=== PATIENT | male | born 1965 | race Caucasian/White ===

== ENCOUNTER 2018-05-27 00:22 | Emergency (ER) | payer MEDICAID, OTHER ==
[~2018-05-27] VITALS: Ht 180.3 cm; Wt 86.2 kg
[~2018-05-27 00:22] MED LIST: METF-442 PO; TAMS-3 PO; [UNRECOGNIZED DRUG - CODE] PO
--- NOTE | 2018-05-27 00:38 | NUR ---
Patient is AAOx4. Speaking in complete sentences, speech is clear. No neurologic deficits noted. Patient comes in with c/o SOB x 2 days. No cough/congestion/adventitious sounds. Current smoker. Flu Shot last March. Respirations even and unlabored. No cardiovascular distress noted. NSR on manager monitoring. No GI/ distress. Patient in bed, bed in lowest position. Siderails up x2. Call light is within reach. Fall precautions in place per protocol.
[2018-05-27] MEDS ORDERED: ALBUTEROL SULFATE 2.5 MG/3 ML NEBU ONE (00:58)
[2018-05-27] MEDS ORDERED: ALBUTEROL SULFATE 2.5 MG/3 ML NEBU NEB ONE (01:00)
[2018-05-27] MEDS ORDERED: AZITHROMYCIN IV 500 MG in IV DEXTROSE 5% 250 ML IV ONE (01:00)
[2018-05-27] MEDS ORDERED: AZITHROMYCIN 500 MG VIAL IV ONE (01:17)
[2018-05-27 01:40] LABS: BASOPHILS # (AUTO) 0.1 K/uL (0.0-8.0); BASOPHILS % (AUTO) 1.2 % (0.0-2.0); EOSINOPHILS # (AUTO) 0.4 K/uL (0.0-0.7); HEMATOCRIT 40.8 % (36.7-47.1); HEMOGLOBIN 14.3 g/dL (12.5-16.3); LYMPHOCYTES # (AUTO) 1.7 K/uL (20.0-40.0); LYMPHOCYTES % (AUTO) 37.3 % (20.5-51.5); MEAN CORPUSCULAR HEMOGLOBIN 31.3 uug (23.8-33.4); MEAN CORPUSCULAR HGB CONC 35 g/dL (32.5-36.3); MEAN CORPUSCULAR VOLUME 89.6 fL (73.0-96.2); MONOCYTES # (AUTO) 0.4 K/uL (2.0-10.0); MONOCYTES % (AUTO) 7.9 % (0.0-11.0); NEUTROPHILS # (AUTO) 2.1 K/uL (1.8-8.9); NEUTROPHILS % (AUTO) 45.6 % (38.5-71.5); PLATELET COUNT (AUTO) 146 K/uL (152-348); RED BLOOD CELL COUNT(AUTO) 4.55 MIL/uL (4.06-5.63); WHITE BLOOD COUNT (AUTO) 4.7 K/uL (3.6-10.2)
[2018-05-27 01:43] LABS: CREATININE 0.9 mg/dL (0.6-1.3); POTASSIUM 3.8 mmol/L (3.5-5.1)
--- NOTE | 2018-05-27 01:43 | NUR ---
Patient in bed, no acute distress noted.
[2018-05-27 01:56] LABS: BILIRUBIN,DIRECT 0.1 mg/dL (0.0-0.2); BILIRUBIN,TOTAL 0.6 mg/dL (0.2-1.0); TOTAL PROTEIN, SERUM 7.8 g/dL (6.4-8.2)
--- NOTE | 2018-05-27 03:11 | NUR ---
Patient discharged to home in stable conditon. Written and verbal after care instructions given. Patient verbalizes understanding of instructions. Ambulated from ER with stable gait. All belongings with patient.
[2018-05-27 03:12] VITALS: BP 111/78
== END 2018-05-27 03:16 | disposition home or self-care (01) ==
LOC: ER 00:24
DX: J40 Bronchitis, not specified as acute or chronic (principal); A31.0 Pulmonary mycobacterial infection; I50.9 Heart failure, unspecified; F17.200 Nicotine dependence, unspecified, uncomplicated; E11.9 Type 2 diabetes mellitus without complications; Z79.899 Other long term (current) drug therapy; Z59.0 Homelessness
CPT/HCPCS: 36415; 71045; 80048; 80076; 83880; 84484; 85025; 85730; 87040 ×2; 93005; 94640; 96365; 96366; 99284; J0456; 70030-TC; A4663; J7050

== ENCOUNTER 2018-06-08 05:09 | Emergency (ER) | payer OTHER ==
[~2018-06-08] VITALS: Ht 180.3 cm; Wt 77.1 kg
--- NOTE | 2018-06-08 05:26 | NUR ---
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 Respirations even + unlabored. No sob/chest pain. No acute distress noted.
[2018-06-08] MEDS ORDERED: ALBUTEROL SULFATE 2.5 MG/3 ML NEBU NEB ONE (05:45)
[2018-06-08] MEDS ORDERED: IPRATROPIUM BROMIDE 0.5 MG/2.5 ML NEBU NEB ONE (05:45)
[2018-06-08] MEDS ORDERED: ALBUTEROL SULFATE 2.5 MG/3 ML NEBU ONE (05:50)
[2018-06-08] MEDS ORDERED: IPRATROPIUM BROMIDE 0.5 MG/2.5 ML NEBU ONE (05:50)
--- NOTE | 2018-06-08 06:18 | NUR ---
Pt states he feels much better after breathing tx.
--- NOTE | 2018-06-08 06:21 | NUR ---
Patient given written and verbal discharge instructions. Patient verbalizes understanding of instructions. Patient is ambulatory with steady gait. Refuses offer of intermediate placement. Patient given list of available shelters in surrounding area. Provided pt food. Pt states he will return to his car.
== END 2018-06-08 06:24 | disposition home or self-care (01) ==
LOC: ER 05:10
DX: A31.0 Pulmonary mycobacterial infection (principal); J40 Bronchitis, not specified as acute or chronic; R07.81 Pleurodynia; I50.9 Heart failure, unspecified; E11.9 Type 2 diabetes mellitus without complications; F17.200 Nicotine dependence, unspecified, uncomplicated; Z59.0 Homelessness; Z79.899 Other long term (current) drug therapy
CPT/HCPCS: 93005; A4663; J3590

== ENCOUNTER 2018-06-21 20:52 | Emergency (ER) | payer OTHER ==
[~2018-06-21] VITALS: Ht 172.7 cm; Wt 81.6 kg
--- NOTE | 2018-06-21 22:56 | NUR ---
Pt ambulates to ER with c/o cough x 2 days. Respirations even + unlabored. SAO2 97% room air.
--- NOTE | 2018-06-21 23:01 | NUR ---
Dr. Carina SCOTT MD at bedside to evaluate pt.
[2018-06-21] MEDS ORDERED: ALBUTEROL SULFATE 2.5 MG/3 ML NEBU ONE (23:11)
[2018-06-21] MEDS ORDERED: IPRATROPIUM BROMIDE 0.5 MG/2.5 ML NEBU ONE (23:11)
[2018-06-21] MEDS ORDERED: ALBUTEROL SULFATE 2.5 MG/3 ML NEBU NEB ONE (23:15)
[2018-06-21] MEDS ORDERED: IPRATROPIUM BROMIDE 0.5 MG/2.5 ML NEBU NEB ONE (23:15)
--- NOTE | 2018-06-21 23:56 | NUR ---
Patient given written and verbal discharge instructions. Patient verbalizes understanding of instructions. Patient is ambulatory with steady gait. Refuses offer of intermediate placement. Patient given list of available shelters in surrounding area. Pt provided sandwich.
== END 2018-06-21 23:59 | disposition home or self-care (01) ==
LOC: ER 20:52
DX: J20.9 Acute bronchitis, unspecified (principal); A31.0 Pulmonary mycobacterial infection; I50.9 Heart failure, unspecified; F17.200 Nicotine dependence, unspecified, uncomplicated; E11.9 Type 2 diabetes mellitus without complications; Z59.0 Homelessness; Z79.899 Other long term (current) drug therapy
CPT/HCPCS: A4663; J3590

== ENCOUNTER 2018-06-26 02:50 | Emergency (ER) | payer OTHER ==
[~2018-06-26] VITALS: Ht 180.3 cm; Wt 99.8 kg
--- NOTE | 2018-06-26 03:39 | NUR ---
Dr. Dutton at bedside for MSE.
[2018-06-26] MEDS ORDERED: IBUPROFEN 600 MG TABLET PO ONE (03:45)
[2018-06-26] MEDS ORDERED: IBUPROFEN 600 MG TABLET ONE (03:51)
--- NOTE | 2018-06-26 04:05 | NUR ---
MSE COMPLETED, PT RECEIVED MOTRIN, PT THEN D/C'D HOME, PT OFFERED HOMELESS PACKET , PT REFUSED PAKET. PT AMBULATED W/O DIFF/TOOK ALL BELONGINGS. PT SIGNED [facility] [employer] REFUSAL FORM.
[2018-06-26 04:07] VITALS: BP 132/81
== END 2018-06-26 04:08 | disposition home or self-care (01) ==
LOC: ER 02:50
DX: K80.20 Calculus of gallbladder without cholecystitis without obstruction (principal); I50.9 Heart failure, unspecified; E11.9 Type 2 diabetes mellitus without complications; F17.200 Nicotine dependence, unspecified, uncomplicated; Z59.0 Homelessness; Z79.899 Other long term (current) drug therapy
CPT/HCPCS: A4663

== ENCOUNTER 2018-07-02 18:01 | Emergency (ER) | payer OTHER ==
[~2018-07-02] VITALS: Ht 180.3 cm; Wt 99.8 kg
--- NOTE | 2018-07-02 19:00 | NUR ---
Dr. Alejo at bedside for MSE.
[2018-07-02 19:26] LABS: BASOPHILS % (AUTO) 0.9 % (0.0-2.0); EOSINOPHILS # (AUTO) 0.3 K/uL (0.0-0.7); EOSINOPHILS % (AUTO) 9.4 % (0.0-7.0); HEMATOCRIT 41.6 % (36.7-47.1); HEMOGLOBIN 14.4 g/dL (12.5-16.3); LYMPHOCYTES # (AUTO) 1.1 K/uL (20.0-40.0); LYMPHOCYTES % (AUTO) 31.9 % (20.5-51.5); MEAN CORPUSCULAR HEMOGLOBIN 30.5 uug (23.8-33.4); MEAN CORPUSCULAR HGB CONC 35 g/dL (32.5-36.3); MEAN CORPUSCULAR VOLUME 87.9 fL (73.0-96.2); MONOCYTES # (AUTO) 0.3 K/uL (2.0-10.0); MONOCYTES % (AUTO) 7.5 % (0.0-11.0); NEUTROPHILS # (AUTO) 1.7 K/uL (1.8-8.9); NEUTROPHILS % (AUTO) 50.3 % (38.5-71.5); PLATELET COUNT (AUTO) 151 K/uL (152-348); RED BLOOD CELL COUNT(AUTO) 4.73 MIL/uL (4.06-5.63); WHITE BLOOD COUNT (AUTO) 3.4 K/uL (3.6-10.2)
[2018-07-02 19:33] LABS: CREATININE 0.7 mg/dL (0.6-1.3); POTASSIUM 3.9 mmol/L (3.5-5.1)
[2018-07-02 19:46] LABS: BILIRUBIN,DIRECT 0.2 mg/dL (0.0-0.2); BILIRUBIN,TOTAL 0.5 mg/dL (0.2-1.0); TOTAL PROTEIN, SERUM 7.8 g/dL (6.4-8.2)
--- NOTE | 2018-07-02 20:55 | NUR ---
Called [facility] to page Dr. Buddy Salomon
[2018-07-02] MEDS ORDERED: AMOX-430 PO (21:17)
[2018-07-02] MEDS ORDERED: SULF1TAB48 PO (21:17)
[2018-07-02] MEDS ORDERED: AZIT250T13 PO (21:17)
--- NOTE | 2018-07-02 21:24 | NUR ---
Dr. Alejo speaking with [place] [facility].
--- NOTE | 2018-07-02 21:30 | NUR ---
Received call from Lanie, Nursing Amb[facility] Operations Supervisor [facility]. Pt can be admitted to room 101. Requests pt info to be faxed to
--- NOTE | 2018-07-02 21:35 | NUR ---
Dr. Alejo speaking with Dr. Elizalde.
--- NOTE | 2018-07-02 21:39 | NUR ---
Pt accepted for transfer to [facility], diagnosis: cavitary pneumonia.
--- NOTE | 2018-07-02 21:40 | NUR ---
Jamal Melton, [address]30 et[address], trip#[id number]
--- NOTE | 2018-07-02 21:50 | NUR ---
Pt stated he doesn't want to be transferred to [facility] and wants to leave instead. notified.
--- NOTE | 2018-07-02 22:10 | NUR ---
Patient does not wish to proceed with medical care recommended by Dr. Alejo. Patient given information related to possible complications, up to and including , which could occur as a result of leaving the hospital at this time. Patient verbalizes understanding of risks involved due to leaving against medical advice. Patient refused to sign AMA form and eloped from Emergency Room. Pt's IV site was discontinued, no acute signs of distress, VSS, all belongings taken.
== END 2018-07-02 22:13 | disposition left against medical advice (07) ==
LOC: ER 18:04
DX: A15.0 Tuberculosis of lung (principal); A31.0 Pulmonary mycobacterial infection; R22.42 Localized swelling, mass and lump, left lower limb; F17.200 Nicotine dependence, unspecified, uncomplicated; I50.9 Heart failure, unspecified; E11.9 Type 2 diabetes mellitus without complications; Z59.0 Homelessness; Z79.2 Long term (current) use of antibiotics; Z79.899 Other long term (current) drug therapy
CPT/HCPCS: 36415; 70030-TC; 71045; 83605; 85025; 85730; 87040; 93005; A4663

== ENCOUNTER 2018-11-20 22:10 | Emergency (ER) | payer OTHER ==
[~2018-11-20] VITALS: Ht 180.3 cm; Wt 88.5 kg
[~2018-11-20 22:10] MED LIST changes: +AMOX-430 PO; +AZIT250T13 PO; -METF-442 PO; +SULF1TAB48 PO; -TAMS-3 PO; -[UNRECOGNIZED DRUG - CODE] PO
--- NOTE | 2018-11-20 22:20 | NUR ---
PATIENT CAME WALKING ,AAOX4/MAEX4,CAME WITH BELONGINGS ON A SHOPPING CART .
--- NOTE | 2018-11-20 22:31 | NUR ---
SEEN AND EXAMINED BY MELISSA AT BEDSIDE AWARE ABOUT THE EKG RESULT PER MD ITS SB RATE OF 58, PER MD HE WILL ORDER TROPONIN .
--- NOTE | 2018-11-20 22:45 | NUR ---
TROPONIN RESULT GIVEN TO DR: ANNETTE <0.017.
--- NOTE | 2018-11-20 23:28 | NUR ---
Patient given written and verbal discharge instructions. Patient verbalizes understanding of instructions. Patient is ambulatory with steady gait. Refuses offer of [facility] placement. Patient given list of available shelters in surrounding area.patient went with all belongings . refused all other services at this time . will arrange his own tansportation back to [place].aaox3/maex4.
== END 2018-11-20 23:35 | disposition home or self-care (01) ==
LOC: ER 22:10
DX: R07.89 Other chest pain (principal); I50.9 Heart failure, unspecified; F17.210 Nicotine dependence, cigarettes, uncomplicated; Z79.2 Long term (current) use of antibiotics; Z79.899 Other long term (current) drug therapy; Z59.0 Homelessness
CPT/HCPCS: 36415; 70030-TC; 93005; A4663

== ENCOUNTER 2022-02-17 22:00 | Emergency (ER) | payer MEDICAID, OTHER ==
[~2022-02-17] VITALS: Ht 180.3 cm; Wt 102.1 kg
--- NOTE | 2022-02-18 02:17 | NUR ---
Dr Hastings at bedside, MSE in progress
[2022-02-18] MEDS ORDERED: BICT1TAB PO ×2 (02:21→02:28)
[2022-02-18] MEDS ORDERED: SULFACETAMIDE SOD 10% OPHT DR 15 ML BOTTLE ONE (02:23)
[2022-02-18] MEDS ORDERED: CIPR5DRO EACHEYE (02:28)
[2022-02-18] MEDS ORDERED: SULFACETAMIDE SOD 10% OPHT DR 15 ML BOTTLE OP ONE (02:30)
--- NOTE | 2022-02-18 02:32 | NUR ---
Patient discharged to home in stable condition. Written and verbal after care instructions given. Patient verbalizes understanding of instructions. Stressed follow up or return to ER for worsening s/s. Patient is a/o4, NAD noted.
[2022-02-18 03:11] VITALS: BP 135/72
== END 2022-02-18 03:12 | disposition home or self-care (01) ==
LOC: ER 23:30
DX: H10.9 Unspecified conjunctivitis (principal); B20 Human immunodeficiency virus [HIV] disease; Z76.0 Encounter for issue of repeat prescription; Z86.11 Personal history of tuberculosis; F17.210 Nicotine dependence, cigarettes, uncomplicated; R03.0 Elevated blood-pressure reading, without diagnosis of hypertension
CPT/HCPCS: A4663